=== PATIENT | male | born 1985 | race African-American/Black ===

== ENCOUNTER 2020-05-26 11:46 | Emergency (ER) | payer OTHER ==
[~2020-05-26] VITALS: Ht 172.7 cm; Wt 108.9 kg
--- NOTE | ~2020-05-26 | EMS ---
[address] [address] EMS Patient Care Report Name: TORY FRANKS Room #: REG CHIDI An#: [id number] Admission: 05/26/20 Attend Phys: Discharge: Date of : [birth year] Report #: [id number] THIS REPORT FOR: //name// Report Transmitted: 05/26/2020 11:51 EMS Care Summary [place], [place]/[facility] Incident [id number] @ 05/26/2020 11:01 Incident Location [address] [place] [address] Patient TORY FRANKS Male, 34 Years 1985 Patient Address [address] [place], [place] [id number] Patient History Bipolar II Disorder,Schizophrenia, Patient Allergies No known allergies, Patient Medications Clonazepam, Depakote, Amlodipine, Hydrocodone, Chief Complaint BEHAVIORAL Disposition Transported No Lights/[place] Reason Unknown Problem/Person Down Transported To [facility] Narrative SCENE: ON ARRIVAL PT FOUND AMBULATING ABOUT SCENE AT ADDRESS PROVIDED. PT IS AWAKE AND ALERT WITH A GCS OF 15. PT REQUESTING TRANSPORT TO [facility] FOR MENTAL [facility] EVALUATION. PT ASSISTED INTO EMS UNIT. [address] [address] EMS Patient Care Report Name: TORY FRANKS Room #: [place] An#: [id number] Admission: 05/26/20 Attend Phys: Discharge: Date of : [birth year] Report #: [id number] AMBULANCE: PT DENIES SI OR HI. PT IS CALM AND COOPERATIVE BUT HS DISCONNECTED THOUGHT AND SPEECH PATTERNS, WITH RAPID SPEECH. VITALS MONITORED. NO CHANGES. Initial Vitals @11:22P: 124,R: 18,Pain: 0/10,GCS: 15,Revised Trauma: 12, @11:39P: 118,R: 16,BP: 122/70,GCS: 15,Revised Trauma: 12, Assessments @11:23MENTAL:No Abnormalities,SKIN:No Abnormalities,HEENT:Head/Face: No Abnormalities,Eyes: No Abnormalities,Neck/Airway: No Abnormalities,LUNG SOUNDS:General: No Abnormalities,Left Upper: No Abnormalities,Right Upper: No Abnormalities,Left Lower: No Abnormalities,Right Lower: No Abnormalities,ABDOMEN:General: No Abnormalities,Left Upper: No Abnormalities,Right Upper: No Abnormalities,Left Lower: No Abnormalities,Right Lower: No Abnormalities,PELVIS//GI:No Abnormalities,EXTREMITIES:Left Arm: No Abnormalities,Right Arm: No Abnormalities,Left Leg: No Abnormalities,Right Leg: No Abnormalities,PULSE:NEURO:No Abnormalities,@11:40MENTAL:No Abnormalities,SKIN:No Abnormalities,HEENT:Head/Face: No Abnormalities,Eyes: No Abnormalities,Neck/Airway: No Abnormalities,LUNG SOUNDS:General: No Abnormalities,Left Upper: No Abnormalities,Right Upper: No Abnormalities,Left Lower: No Abnormalities,Right Lower: No Abnormalities,ABDOMEN:General: No Abnormalities,Left Upper: No Abnormalities,Right Upper: No Abnormalities,Left Lower: No Abnormalities,Right Lower: No Abnormalities,PELVIS//GI:No Abnormalities,EXTREMITIES:Left Arm: No Abnormalities,Right Arm: No Abnormalities,Left Leg: No Abnormalities,Right Leg: No Abnormalities,PULSE:NEURO:No Abnormalities, Impression Behavioral/psychiatric episode Procedures @11:22ALS AssessmentResponse: UnchangedSucceeded Timeline 10:58,Call Received 10:58,Dispatch Notified 11:01,Dispatched 11:01,En Route 11:20,On Scene 11:20,At Patient 11:22,BP: 138/ M,PULSE: 124,RR: 18 R,SPO2: Ox,ETCO2: ,BG: ,PAIN: 0,GCS: 15, 11:22,ALS Assessment,Response: UnchangedSucceeded, 11:25,Depart Scene 11:39,BP: 122/70 M,PULSE: 118,RR: 16 R,SPO2: Ox,ETCO2: ,BG: ,PAIN: ,GCS: 15, 11:42,At Destination 11:57,Call Closed [address] [address] EMS Patient Care Report Name: TORY FRANKS Room #: REG [facility].#: [id number] Admission: 05/26/20 Attend Phys: Discharge: Date of : [birth year] Report #: [id number] Disclaimer [email or web address] Copyright 2020 [employer] This EMS Care Summary contains data elements from the applicable legal record (which may be displayed differently). It is designed to provide pertinent information for the following purposes: continuity of care, clinical quality, and state data reporting. The complete legal record is available to ED staff and administrators of the receiving hospital in [facility]'s Patient Tracker. All data is provided "as is."
[~2020-05-26 11:46] MED LIST: AMLODIPINE BESY10 MG PO; BP MED; CLONAZEPAM; CLOZAPINE200 MG PO; DEPAKOTE500 MG PO
[2020-05-26] MEDS ORDERED: METFORMIN HCL500 M3 PO (12:13)
[2020-05-26 12:58] LABS: AMP/METHAMP Negative (Negative); BARBITURATES Negative (Negative); BENZODIAZEPINES Negative (Negative); COCAINE Negative (Negative); METHADONE Negative (Negative); OPIATES Negative (Negative); PCP Negative (Negative)
[2020-05-26 13:06] LABS: ABSOLUTE NEUTROPHILS 8.8 thou/uL (1.4-8.2); BASOPHILS 0.6 % (0.0-2.0); EOSINOPHILS 0.1 % (0.0-3.0); HEMATOCRIT 34.2 % (42.0-52.0); LYMPHOCYTES 19.3 % (24.0-44.0); MCHC 32.2 g/dL (28.0-37.0); MCV 71.3 fL (80.0-100.0); MONOCYTES 6.9 % (1.0-8.0); PLATELET COUNT 278 thou/uL (150-400); POLYS 73.1 % (36.0-66.0); RDW 17.3 % (10.5-14.5); WBC 12.1 thou/uL (4.0-11.0)
[2020-05-26 13:21] LABS: CALCIUM 9.7 mg/dL (8.5-10.1); POTASSIUM 3.6 mmol/L (3.5-5.1)
[2020-05-26 13:26] LABS: ALBUMIN 4.3 g/dL (3.4-5.0); TOTAL BILIRUBIN 0.6 mg/dL (0.2-1.0); TOTAL PROTEIN 8.5 g/dL (6.4-8.2)
[2020-05-26 13:41] LABS: ANISOCYTOSIS 1+; MICROCYTES SLIGHT; OVALOCYTES OCCASIONAL; TARGET CELLS OCCASIONAL
--- NOTE | 2020-05-26 15:22 | EKG ---
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
[2020-05-26] MEDS ORDERED: PENICILLIN VK500 MG PO (16:46)
[2020-05-26 17:05] VITALS: BP 130/85
== END 2020-05-26 17:05 | disposition home or self-care (01) ==
LOC: ER 11:46
PROVIDERS: Emergency Medicine
DX: U07.1 COVID-19 (principal); K04.7 Periapical abscess without sinus; F20.9 Schizophrenia, unspecified; I10 Essential (primary) hypertension; F41.9 Anxiety disorder, unspecified; F12.90 Cannabis use, unspecified, uncomplicated; Z79.899 Other long term (current) drug therapy

== ENCOUNTER 2020-06-22 20:57 | Emergency (ER) | payer OTHER ==
[~2020-06-22] VITALS: Ht 175.3 cm; Wt 81.7 kg
[~2020-06-22 20:57] MED LIST changes: +METFORMIN HCL500 M3 PO; +PENICILLIN VK500 MG PO
[2020-06-22 20:58] VITALS: BP 152/86
[2020-06-22] MEDS ORDERED: CHLORPROMAZINE50 M2 PO (21:01)
[2020-06-22] MEDS ORDERED: VALPROIC A250 MG/51 PO (21:02)
[2020-06-22] MEDS ORDERED: HYDROCHLOROTHIA25 M2 PO (21:02)
[2020-06-22] MEDS ORDERED: CLOZAPINE100 MG PO (21:02)
[2020-06-22] MEDS ORDERED: IRON325 PO (21:03)
[2020-06-22] MEDS ORDERED: TRAZODONE HCL100 MG PO (21:03)
[2020-06-22] MEDS ORDERED: METFORMIN HCL500 MG PO (21:03)
--- NOTE | 2020-06-23 07:18 | EKG ---
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 : 1985 Requested By: Reagan Henry Order Number: [id number] MD: Farooq Bennett Measurements Intervals [place] Rate: 110 P: 56 ID: 133 QRS: 24 QRSD: 85 T: 51 QT: 350 QTc: 474 Interpretive Statements Sinus tachycardia Left atrial enlargement Borderline prolonged QT interval Baseline wander in lead(s) I,II,aVR,V1,V6 Compared to ECG 05/26/2020 13:10:06 Atrial abnormality now present Sinus rhythm no longer present Electronically Signed On 06-23-2020 7:18:21 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
== END 2020-06-22 21:45 | disposition left against medical advice (07) ==
LOC: ER 20:57
DX: F29 Unspecified psychosis not due to a substance or known physiological condition (principal); F20.9 Schizophrenia, unspecified; I10 Essential (primary) hypertension; F41.9 Anxiety disorder, unspecified; Z79.899 Other long term (current) drug therapy